=== PATIENT | male | born 2000 | race Caucasian/White ===

== ENCOUNTER 2020-09-26 18:27 | Emergency (ER) | payer BC ==
--- NOTE | 2020-09-26 20:53 | EDM.PDOC ---
ED HPI GENERAL MEDICAL PROBLEM - General Chief Complaint: Abdominal Pain Stated Complaint: ABD PAIN, NAUSEA Time Seen by Provider: 09/26/20 19:15 Source of Information: Reports: Patient History Limitations: Reports: No Limitations - History of Present Illness INITIAL COMMENTS - FREE TEXT/NARRATIVE: 20-year-old male who is been struggling with some intermittent nausea and genera l abdominal discomfort for the past 3 days. He had his first Covid vaccination 7 days ago. No fevers or chills, no significant diarrhea. No urinary symptoms. Tonight he felt like he could not eat supper because he was too nauseous so came in to be checked. Onset: Gradual Duration: Day(s): (Symptoms for 3 days) Location: Reports: Abdomen Worsens with: Reports: Eating Associated Symptoms: Reports: Loss of Appetite, Nausea/Vomiting. Denies: Chest Pain, Cough, Shortness of Breath, Weakness - Related Data Allergies Allergy/AdvReac Type Severity Reaction Status Date / Time No Known Allergies Allergy Verified 09/26/20 19:03 Home Meds: Home Meds NK [No Known Home Meds] 09/26/20 [History] Past Medical History HEENT History: Reports: Impaired Vision Gastrointestinal History: Reports: None Neurological History: Reports: Concussion - Past Surgical History Head Surgeries/Procedures: Reports: None HEENT Surgical History: Reports: None GI Surgical History: Reports: Hernia, Inguinal Neurological Surgical History: Reports: None Dermatological Surgical History: Reports: None Social & Family History - Tobacco Use Tobacco Use Status *Q: Never Tobacco User Second Hand Smoke Exposure: No - Caffeine Use Caffeine Use: Reports: None - Recreational Drug Use Recreational Drug Use: No ED ROS GENERAL - Review of Systems Review Of Systems: See Below Constitutional: Reports: Malaise. Denies: Fever, Chills HEENT: Reports: No Symptoms Respiratory: Reports: No Symptoms Cardiovascular: Reports: No Symptoms GI/Abdominal: Reports: Abdominal Pain, Nausea, Vomiting. Denies: Constipation, Diarrhea : Reports: No Symptoms Skin: Reports: No Symptoms Neurological: Reports: No Symptoms. Denies: Headache Psychiatric: Reports: No Symptoms ED EXAM, GI/ABD - Physical Exam Exam: See Below Exam Limited By: No Limitations General Appearance: Alert, No Apparent Distress Eyes: Bilateral: Normal Appearance (No jaundice, good hydration) Head: Atraumatic Respiratory/Chest: No Respiratory Distress, Lungs Clear Cardiovascular: Regular Rate, Rhythm. No: Tachycardia GI/Abdominal Exam: Normal Bowel Sounds, Soft, Tender (Mild discomfort to palpation across the upper abdomen but no focal guarding or rebound) Neurological: Alert, Oriented Psychiatric: Normal Affect, Normal Mood Skin Exam: Warm, Dry Course - Vital Signs Last Recorded V/S: Last Vital Signs Temp 97.9 F 09/26/20 19:08 Pulse 74 09/26/20 19:08 Resp 16 09/26/20 19:08 BP 125/84 09/26/20 19:08 Pulse Ox 100 09/26/20 19:08 - Orders/Labs/Meds Labs: Laboratory Tests 09/26/20 09/26/20 Range/Units 19:44 19:44 WBC 4.3 L (4.5-11.0) K/uL RBC 5.31 (4.30-5.90) M/uL Hgb 15.8 H (12.0-15.0) g/dL Hct 45.0 (40.0-54.0) % MCV 85 (80-98) fL MCH 30 (27-31) pg MCHC 35 (32-36) % Plt Count 262 (150-400) K/uL Neut % (Auto) 50.4 (36-66) % Lymph % (Auto) 28.1 (24-44) % Carter % (Auto) 17.7 H (2-6) % Eos % (Auto) 3.3 (2-4) % Baso % (Auto) 0.5 (0-1) % Sodium 142 (140-148) mmol/L Potassium 4.1 (3.6-5.2) mmol/L Chloride 103 (100-108) mmol/L Carbon Dioxide 29 (21-32) mmol/L Anion Gap 10.3 (5.0-14.0) mmol/L BUN 9 (7-18) mg/dL Creatinine 0.9 (0.8-1.3) mg/dL Est Cr Clr Drug Dosing 142.59 mL/min Estimated GFR (MDRD) > 60 (>60) Glucose 95 (74-106) mg/dL Calcium 8.7 (8.5-10.1) mg/dL Total Bilirubin 0.7 (0.2-1.0) mg/dL AST 18 (15-37) U/L ALT 20 (12-78) U/L Alkaline Phosphatase 68 (46-116) U/L Total Protein 7.0 (6.4-8.2) g/dL Albumin 3.9 (3.4-5.0) g/dL Globulin 3.1 (2.3-3.5) g/dL Albumin/Globulin Ratio 1.3 (1.2-2.2) Lipase 57 L (73-393) U/L - Re-Assessments/Exams Free Text/Narrative Re-Assessment/Exam: 09/26/20 21:59 CBC CMP were obtained and were generally normal other than a mildly decreased white count. This is likely a viral gastroenteritis or possibly lingering side effects from the Covid vaccination, but this should improve rather than worsen. Recommended a few days of Prilosec to help with any gastritis that is developed, and he can return if worsening. Departure - Departure Time of Disposition: 21:03 Disposition: Home, Self-Care 01 Clinical Impression: Gastroenteritis - Discharge Information Instructions: Viral Gastroenteritis, Adult, [id number] Referrals: PCP,None [Primary Care Provider] - Forms: ED Department Discharge Care Plan Goals: Consider omeprazole daily, 20 or 40 mg for 7 to 10 days. Return anytime if worsening such as fever, increased pain or persistent nausea and vomiting. Sepsis Event Note (ED) - Evaluation Sepsis Screening Result: No Definite Risk - Focused Exam Vital Signs: Vital Signs Temp Pulse Resp BP Pulse Ox 09/26/20 19:08 97.9 F 74 16 125/84 100 09/26/20 19:04 97.9 F 74 16 125/84 100
== END 2020-09-26 21:03 | disposition home or self-care (01) ==
LOC: JP.ED 18:27
DX: K52.9 Noninfective gastroenteritis and colitis, unspecified (principal)
CPT/HCPCS: 36415; 80053; 83690; 85025; 99284